=== PATIENT | male | born 1975 | race Caucasian/White ===

== ENCOUNTER 2019-05-22 12:45 | Emergency (ER) | payer SELFPAY ==
[2019-05-22 12:53] VITALS: BP 166/89
[2019-05-22] MEDS ORDERED: Rabies VIRUS VACCINE (RabAvert)* 2.5 UNITS VIAL IM ONE (13:04)
[2019-05-22] MEDS ORDERED: Rabies Immune Globulin/PF 1ML* 1 ML/300 UNITS VIAL IM ONE (13:04)
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
== END 2019-05-22 15:01 | disposition home or self-care (01) ==
LOC: ED 12:45
DX: Z20.3 Contact with and (suspected) exposure to rabies (principal); Z88.0 Allergy status to penicillin
CPT/HCPCS: 90375; 90471; 90675; 96372; 99281

== ENCOUNTER 2019-05-26 07:28 | Emergency (ER) | payer SELFPAY ==
[2019-05-26 08:00] VITALS: BP 125/79
[2019-05-26] MEDS ORDERED: Rabies VIRUS VACCINE (RabAvert)* 2.5 UNITS VIAL IM ONE (08:08)
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
== END 2019-05-26 08:20 | disposition home or self-care (01) ==
LOC: UCEAST 07:28
DX: Z20.3 Contact with and (suspected) exposure to rabies (principal); Z23 Encounter for immunization; Z88.0 Allergy status to penicillin
CPT/HCPCS: 90471; 90675; 99211; G0463

== ENCOUNTER 2019-05-29 07:10 | Emergency (ER) | payer SELFPAY ==
[2019-05-29] MEDS ORDERED: Rabies VIRUS VACCINE (RabAvert)* 2.5 UNITS VIAL IM ONE (07:30)
[2019-05-29 07:36] VITALS: BP 145/90
--- NOTE | 2019-05-29 07:46 | UC ---
Bite Injury/Animal HPI - HPI Summary HPI Summary: The patient is a 44-year-old male with a rabies exposure to the mucous membranes due to a rabid raccoon. He is here for day #7 of his booster shot. He has no complaints. He is feeling fine. He is from [facility]. - History of Current Complaint Chief Complaint: UCBiteInjury Stated Complaint: RABIES Time Seen by Provider: 05/29/19 07:22 Hx Obtained From: Patient Severity Currently: None Pain Intensity: 0 Pain Scale Used: 0-10 Numeric Type of Bite: Wild Animal - raccoon Has Animal Been Immunized?: N/A Animal Available for Observation: No - Allergies/Home Medications Allergies/Adverse Reactions: Allergies Allergy/AdvReac Type Severity Reaction Status Date / Time Penicillins Allergy Hives Verified 05/29/19 07:22 Home Medications: Home Medications NK [No Home Medications Reported] 05/26/19 [History Confirmed 05/29/19] PMH/Surg Hx/FS Hx/Imm Hx Previously Healthy: Yes - Surgical History Surgical History: Yes Surgery Procedure, Year, and Place: vasectomy - Family History Known Family History: Positive: Hypertension - Social History Alcohol Use: Occasionally Substance Use Type: None Smoking Status (MU): Never Smoked Tobacco Review of Systems All Other Systems Reviewed And Are Negative: Yes Constitutional: Positive: Negative Skin: Positive: Negative Eyes: Positive: Negative ENT: Positive: Negative Respiratory: Positive: Negative Cardiovascular: Positive: Negative Gastrointestinal: Positive: Negative Genitourinary: Positive: Negative Motor: Positive: Negative Neurovascular: Positive: Negative Musculoskeletal: Positive: Negative Neurological/Mental Status: Positive: Negative Psychological: Positive: Negative Physical Exam Triage Information Reviewed: Yes Appearance: Well-Appearing, No Pain Distress, Well-Nourished Vital Signs: Initial Vital Signs Temp 97.8 F 05/29/19 07:22 Pulse 73 05/29/19 07:22 Resp 16 05/29/19 07:22 BP 145/90 05/29/19 07:22 Pulse Ox 96 05/29/19 07:22 Vital Signs Reviewed: Yes Eyes: Positive: Conjunctiva Clear ENT: Positive: Hearing grossly normal. Negative: Nasal congestion, Nasal drainage, Trismus, Muffled voice, Hoarse voice Neck: Positive: Supple, Nontender Respiratory: Positive: Lungs clear, Normal breath sounds, No respiratory distress, No accessory muscle use Cardiovascular: Positive: RRR Musculoskeletal: Positive: ROM Intact, No Edema Neurological: Positive: Alert Skin Exam: Normal Bite Injury Course/Dx - Differential Dx/Diagnosis Provider Diagnosis: Rabies contact, Elevated BP without diagnosis of hypertension Discharge ED - Sign-Out/Discharge Documenting (check all that apply): Patient Departure All imaging exams completed and their final reports reviewed: No Studies - Discharge Plan Condition: Stable Disposition: HOME Patient Education Materials: Rabies Vaccine (By injection) Referrals: Trino Campbell DO [Primary Care Provider] - (BP recheck advised in 2-6 mos) Additional Instructions: This was your day 7 booster return in 7 days for your 14 day booster - Billing Disposition and Condition Condition: STABLE Disposition: Home
== END 2019-05-29 08:03 | disposition home or self-care (01) ==
LOC: UCEAST 07:10
DX: Z20.3 Contact with and (suspected) exposure to rabies (principal); Z23 Encounter for immunization; R03.0 Elevated blood-pressure reading, without diagnosis of hypertension; Z88.0 Allergy status to penicillin
CPT/HCPCS: 90675; 96372; 99211; G0463

== ENCOUNTER 2019-06-05 08:04 | Emergency (ER) | payer SELFPAY ==
[2019-06-05] MEDS ORDERED: Rabies VIRUS VACCINE (RabAvert)* 2.5 UNITS VIAL IM ONE (08:17)
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
[2019-06-05 08:32] VITALS: BP 141/85
== END 2019-06-05 08:40 | disposition home or self-care (01) ==
LOC: UCEAST 08:04
DX: Z20.3 Contact with and (suspected) exposure to rabies (principal); Z23 Encounter for immunization; Z88.0 Allergy status to penicillin
CPT/HCPCS: 90471; 90675; 99211; G0463